=== PATIENT | female | born 1990 | race Caucasian/White ===

== ENCOUNTER → 2016-08-16 13:22 | Outpatient (CLI) | payer MEDICAID ==
[2014-03-10 13:02] VITALS: BMI 26.9
[~2016-08-16 13:22] MED LIST: BUPRENORPHINE HC8 MG SL; HYDROCODON-ACE1 EAC7 PO; IBUPROFEN600 MG PO; PERCOCET 10/3251 TA1 PO
== END | disposition home or self-care (01) ==
LOC: D.MRI 07-06 13:00
DX: M54.16 Radiculopathy, lumbar region (principal)

== ENCOUNTER 2016-09-27 05:49 | Day surgery (SDC) | payer MEDICAID ==
[2016-09-25 11:11] LABS: BASOPHILS 0.2 % (0-2); EOSINOPHILS 1.8 % (0-7); HEMATOCRIT 38.8 % (36.0-48.0); HEMOGLOBIN 12.9 g/dL (12-16); LYMPHOCYTES 31.7 % (15-50); MCH 31.2 pg (26.0-34.0); MCHC 33.2 g/dL (31.0-37.0); MCV 93.9 fL (80.0-100.0); MEAN PLATELET VOLUME 11.2 fL (7.4-10.4); MONOCYTES 7.8 % (2-11); NEUTROPHILS 58.5 % (40-80); PLATELET COUNT 198 10x3/uL (130-400); RBC 4.13 10x6/uL (4.00-5.40); RDW 12.5 % (11.5-14.5)
[2016-09-25 11:21] LABS: CALC OSMOLALITY 284 mosm/kg (275-300); CALCIUM 8.5 mg/dL (8.5-10.1); CARBON DIOXIDE 30.5 mmol/L (21.0-32.0); CHLORIDE - SERUM 107 mmol/L (98-107); CREATININE - SERUM 0.6 mg/dL (0.6-1.3); GLUCOSE 87 mg/dL (74-106); POTASSIUM - SERUM 4.1 mmol/L (3.5-5.1); SODIUM 143 mmol/L (136-145); UREA NITROGEN 16 mg/dL (7-18); eGFR NON AFRICAN AMERICAN > 90 mL/min (90-120)
[~2016-09-27] VITALS: Ht 175.3 cm; Wt 90.7 kg
--- NOTE | ~2016-09-27 | OP ---
PATIENT NAME: LAMIN WHITE MEDICAL RECORD: [id number] :88 LOCATION:D.OPS ADMISSION DATE: SURGEON: CHRIS HORTON MD DATE OF OPERATION: 09/27/2016 PREOPERATIVE DIAGNOSIS: Condyloma acuminata. POSTOPERATIVE DIAGNOSIS: Condyloma acuminata. PROCEDURE: Excision of labial condyloma. SURGEON: Chris Horton MD. ESTIMATED BLOOD LOSS: Minimal. INTRAVENOUS FLUIDS: Per anesthesia record. SPECIMENS: Several condylomata. FINDINGS: Multiple 1-4 cm condylomata located on the left labia minora, left labia majora and the superior perianal region. COMPLICATIONS: None apparent. DESCRIPTION OF PROCEDURE: The patient was taken to the operating room where general anesthesia was achieved without difficulty. The patient was then prepped and draped in normal sterile fashion in the dorsal lithotomy position in the [facility]. At this point, careful survey was performed of the external vulvar and vaginal region. At this point, several warts were then elevated away from the underlying tissue and removed using the Bovie cautery at a low setting at the level of the epidermis. At this point, a careful survey was performed of each removed wart and condylomatous tissue was then fulgurated using the Bovie cautery to, but not into the dermis. This was performed on a 4 mm left labia minora, three 2-3 mm left labia minora and a 1-2 mm superior perianal condyloma. Good hemostasis was noted from all the sites. Careful survey was performed with the entire mons, external vulva, vagina, labial area and perianal areas. The patient tolerated the procedure well, was transported to postanesthesia recovery stable without incident. 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
[~2016-09-27 05:49] MED LIST changes: +DEPAKOTE250 MG PO; +ULTRAM50 MG PO
[2016-09-27 06:24] VITALS: BP 96/54; Ht 175.3 cm; Wt 90.7 kg
[2016-09-27 06:43] LABS: HCG URINE NEGATIVE (NEGATIVE)
--- NOTE | 2016-09-27 10:29 | NUR ---
UPON DC FROM PACU BP 92/56. UPON ARRIVAL TO OR BP WAS 96/54. DC WITHIN LIMITS.
== END 2016-09-27 11:45 | disposition home or self-care (01) ==
LOC: D.OPS 05:49 → D.PAN 07:30 → D.OPS 08:35
PROVIDERS: Obstetrics & Gynecology
DX: A63.0 Anogenital (venereal) warts (principal); F12.90 Cannabis use, unspecified, uncomplicated; Z72.0 Tobacco use; F41.8 Other specified anxiety disorders

== ENCOUNTER 2016-12-06 18:05 | Emergency (ER) | payer MEDICAID ==
[2016-09-27 06:24] VITALS: BMI 29.6
[2016-12-06 19:48] LABS: APPEARANCE HAZY (CLEAR); BILIRUBIN NEGATIVE (NEGATIVE); COLOR YELLOW (YELLOW); GLUCOSE NEGATIVE (NEGATIVE); KETONE NEGATIVE (NEGATIVE); NITRITE NEGATIVE (NEGATIVE); PROTEIN NEGATIVE (NEGATIVE); SPECIFIC GRAVITY 1.025 (1.005-1.020); UROBILINOGEN NORMAL (NORMAL)
[2016-12-06 19:59] LABS: BASOPHILS 0.1 % (0-2); EOSINOPHILS 1.1 % (0-7); HEMATOCRIT 33.6 % (36.0-48.0); HEMOGLOBIN 11.4 g/dL (12-16); IMMATURE GRANULOCYTES 0.2 % (0-5); LYMPHOCYTES 26.8 % (15-50); MCH 30.9 pg (26.0-34.0); MCHC 33.9 g/dL (31.0-37.0); MCV 91.1 fL (80.0-100.0); MEAN PLATELET VOLUME 10.5 fL (7.4-10.4); MONOCYTES 7.6 % (2-11); NEUTROPHILS 64.2 % (40-80); PLATELET COUNT 166 10x3/uL (130-400); RBC 3.69 10x6/uL (4.00-5.40); WBC 9.4 10x3/uL (4.8-10.8)
[2016-12-06 20:47] LABS: ALBUMIN 2.8 g/dL (3.4-5.0); ALKALINE PHOSPHATASE 32 U/L (46-116); ALT (SGPT) 21 U/L (10-68); BILIRUBIN - TOTAL 0.12 mg/dL (0.2-1.3); CALC OSMOLALITY 270 mosm/kg (275-300); CALCIUM 8.6 mg/dL (8.5-10.1); CARBON DIOXIDE 26.9 mmol/L (21.0-32.0); CHLORIDE - SERUM 102 mmol/L (98-107); CREATININE - SERUM 0.5 mg/dL (0.6-1.3); GLUCOSE 99 mg/dL (74-106); HCG - QUANTITATIVE (MATERNAL) 28100 mIU/mL; POTASSIUM - SERUM 3.2 mmol/L (3.5-5.1); PROTEIN - SERUM 6.1 g/dL (6.4-8.2); SODIUM 135 mmol/L (136-145); eGFR NON AFRICAN AMERICAN > 90 mL/min (90-120)
[2016-12-06 20:50] LABS: UREA NITROGEN 14 mg/dL (7-18)
== END 2016-12-06 21:40 | disposition home or self-care (01) ==
LOC: D.ER 18:05
PROVIDERS: Emergency Medicine
DX: O26.891 Other specified pregnancy related conditions, first trimester (principal); Z3A.11 11 weeks gestation of pregnancy; R10.2 Pelvic and perineal pain; E87.6 Hypokalemia; F17.200 Nicotine dependence, unspecified, uncomplicated

== ENCOUNTER 2019-08-19 10:20 | Emergency (ER) | payer MEDICAID ==
[~2019-08-19] VITALS: Ht 175.3 cm; Wt 84.1 kg
[2019-08-19 10:32] VITALS: Ht 175.3 cm; Wt 84.1 kg
[2019-08-19] MEDS ORDERED: ATIVAN2 MG PO (10:34)
[2019-08-19] MEDS ORDERED: HYDROCODON-ACE1 EA10 PO (10:34)
[2019-08-19] MEDS ORDERED: SPRINTEC 28 DA1 EAC1 PO (10:35)
[2019-08-19 11:09] LABS: BILIRUBIN NEGATIVE (NEGATIVE); GLUCOSE NEGATIVE (NEGATIVE); KETONE NEGATIVE (NEGATIVE); NITRITE NEGATIVE (NEGATIVE); SPECIFIC GRAVITY 1.015 (1.005-1.020); UROBILINOGEN NORMAL (NORMAL)
[2019-08-19] MEDS ORDERED: ZYRTEC10 MG PO (11:47)
[2019-08-19] MEDS ORDERED: DIFLUCAN150 MG PO (11:47)
[2019-08-19] MEDS ORDERED: FLUTICASONE PRO16 GM NASAL (11:47)
[2019-08-19 12:11] VITALS: BP 139/78
== END 2019-08-19 12:14 | disposition home or self-care (01) ==
LOC: D.ER 10:20
PROVIDERS: Family Medicine
DX: J30.2 Other seasonal allergic rhinitis (principal); E03.9 Hypothyroidism, unspecified; R09.82 Postnasal drip; R07.0 Pain in throat; M54.2 Cervicalgia; F41.9 Anxiety disorder, unspecified; N89.8 Other specified noninflammatory disorders of vagina